=== PATIENT | female | born 1980 | race Caucasian/White ===

== ENCOUNTER 2018-11-04 12:08 | Emergency (ER) | payer SELFPAY ==
[2018-11-04 12:12] VITALS: BP 115/77; PULSE 72; TEMP 98.3; BMI 24.1
--- NOTE | 2018-11-04 12:28 | PDOC ---
History of Present Illness - General Chief Complaint: Ear Problem Stated Complaint: LT EAR PAIN Time Seen by Provider: 11/04/18 12:20 - History of Present Illness Initial Comments: 11/04/18 12:26 38-year-old female without comorbidities presents for evaluation of ear pain 2 weeks with increasing pain today and drainage. Past History - Past Medical History Allergies/Adverse Reactions: Allergies Allergy/AdvReac Type Severity Reaction Status Date / Time No Known Allergies Allergy Verified 11/04/18 12:12 Home Medications: Ambulatory Orders Ciprofloxacin HCl/Dexameth [Ciprodex Otic Suspension] 4 drop BID 5 Days #1 bottle 11/04/18 COPD: No - Suicide/Smoking/Psychosocial Hx Smoking History: Unknown if ever smoked Have you smoked in the past 12 months: No Information on smoking cessation initiated: No Hx Alcohol Use: No Drug/Substance Use Hx: No Review of Systems - Review of Systems Constitutional: No: Fever HEENTM: Yes: Ear Pain *Physical Exam - Vital Signs Last Vital Signs Temp Pulse Resp BP Pulse Ox 98.3 F 72 16 115/77 100 11/04/18 12:09 11/04/18 12:09 11/04/18 12:09 11/04/18 12:09 11/04/18 12:09 - Physical Exam Comments: 11/04/18 12:26 HEAD: NC/AT EYES: Conjuntiva clear Ears: Ear canals and tympanic membranes are normal left ear canal is erythemic with purulent discharge visualized tympanic membrane is normal MS: Full ROM in all joints without edema NEUROLOGIC: No gross sensory or motor deficits, NVID SKIN: Normal color and temperature no lesions or rashes Medical Decision Making - Medical Decision Making 11/04/18 12:27 Ciprodex for otitis externa follow-up with ENT *DC/Admit/Observation/Transfer Diagnosis at time of Disposition: Otitis externa - Discharge Dispostion Disposition: HOME Condition at time of disposition: Stable Decision to Admit order: No - Prescriptions Prescriptions: Ciprofloxacin HCl/Dexameth [Ciprodex Otic Suspension] 4 drop BID 5 Days #1 bottle - Referrals Referrals: Mick Taylor MD [Staff Physician] - - Patient Instructions Printed Discharge Instructions: Otitis Externa, DI for Otitis Externa Additional Instructions: Return to the emergency room for worsening symptoms. Follow-up with ear nose and throat doctor in 1-2 days without fail for further evaluation and treatment options. Please use the antibiotic drops as directed for the next 5 days - Post Discharge Activity
== END 2018-11-04 12:41 | disposition home or self-care (01) ==
LOC: JERFT 12:08
DX: H60.92 Unspecified otitis externa, left ear (principal)
CPT/HCPCS: 99281-25